=== PATIENT | female | born 1955 | race Caucasian/White ===

== ENCOUNTER 2024-11-21 12:25 | Emergency (ER) | payer MEDICARE, MEDICAID | END 2024-11-21 15:06 | disposition home or self-care (01) | LOC: MW.ED 12:25 | DX: M79.89 Other specified soft tissue disorders (principal); I10 Essential (primary) hypertension; E03.9 Hypothyroidism, unspecified; Z79.899 Other long term (current) drug therapy; Z79.890 Hormone replacement therapy; Z75.8 Other problems related to medical facilities and other health care | CPT/HCPCS: 93970; 93970-26; 99283 ==